=== PATIENT | female | born 1970 | race Caucasian/White ===

== ENCOUNTER 2020-10-16 08:18 | Outpatient (REF) | payer OTHER, SELFPAY ==
--- NOTE | 2020-10-16 08:23 | MM_ITS ---
EXAMINATION: MM SCREENING DIGITAL BREAST TOMOSYNTHESIS, BILATERAL CLINICAL INFORMATION: Screening. Asymptomatic. The lifetime risk of breast cancer based on the Tyrer-Cuzick Model is 7.3%. COMPARISON: Mammography: October 11, 2019 and studies dating back to April 01, 2014 TECHNIQUE: Digital breast tomosynthesis is performed in both the craniocaudal and mediolateral oblique views along with computer-aided detection (CAD). Synthesized 2D images are generated from the tomosynthesis. FINDINGS: The breasts are extremely dense, which lowers the sensitivity of mammography (ACR BI-RADS breast composition Category d). There are no significant masses, abnormal calcifications, or other abnormalities. MM/MM tomosynthesis screening BI IMPRESSION: There are no significant changes from prior study. ASSESSMENT: BI-RADS 1: Negative RECOMMENDATION: Routine annual mammography screening. This patient's information was entered into a reminder system with a target due date for their next mammogram.
== END 2020-10-16 08:19 | disposition home or self-care (01) ==
LOC: HO.MAMMO 08:18
PROVIDERS: PCP Family Medicine; Visit Provider Family Medicine
DX: Z12.31 Encounter for screening mammogram for malignant neoplasm of breast (principal)
CPT/HCPCS: 77063; 77067

== ENCOUNTER 2023-04-22 08:01 | Outpatient (REF) | payer OTHER, SELFPAY ==
--- NOTE | ~2023-04-22 | MM_ITS ---
EXAMINATION: MM SCREENING DIGITAL BREAST TOMOSYNTHESIS, BILATERAL CLINICAL INFORMATION: Screening. Asymptomatic. The lifetime risk of breast cancer based on the Tyrer-Cuzick Model is 7%. COMPARISON: Prior breast imaging exams including most recent mammography 10/16/2020. TECHNIQUE: Digital breast tomosynthesis is performed in both the craniocaudal and mediolateral oblique views along with computer-aided detection (CAD). Synthesized 2D images are generated from the tomosynthesis. Additional bilateral MLO views are provided. FINDINGS: There are scattered areas of fibroglandular density (ACR BI-RADS breast composition Category b). Breast tissue composition borders on heterogeneously dense. No developing density or architectural abnormality. There are no significant masses, abnormal calcifications, or other abnormalities. The axilla and skin contours are unremarkable. MM/MM tomosynthesis screening BI IMPRESSION: No mammographic evidence of malignancy. ASSESSMENT: BI-RADS 1: Negative RECOMMENDATION: Routine annual mammography screening. This patient's information was entered into a reminder system with a target due date for their next mammogram.
== END 2023-04-22 08:02 | disposition home or self-care (01) ==
LOC: HO.MAMMO 08:01
PROVIDERS: PCP Family Medicine; Visit Provider Family Medicine
DX: Z12.31 Encounter for screening mammogram for malignant neoplasm of breast (principal)
CPT/HCPCS: 77063; 77067

== ENCOUNTER 2023-09-01 | Outpatient (REF) | payer OTHER, SELFPAY ==
[2023-09-05 19:48] LABS: C. trachomatis RNA TMA NOT DETECTED (NOT DETECTED); N. gonorrhoeae RNA TMA NOT DETECTED (NOT DETECTED)
[2023-09-06 20:37] LABS: HPV mRNA E6/E7 rflx Not Detected (Not Detected)
== END 2023-09-01 00:01 | disposition home or self-care (01) ==
LOC: HO.HHCLNP
PROVIDERS: Visit Provider Family Medicine
DX: Z12.4 Encounter for screening for malignant neoplasm of cervix (principal); Z11.51 Encounter for screening for human papillomavirus (HPV); D06.9 Carcinoma in situ of cervix, unspecified
CPT/HCPCS: 36415; 87491; 87591; 87624; 88142

== ENCOUNTER 2023-09-04 09:03 | Outpatient (REF) | payer OTHER, SELFPAY ==
[2023-09-04 09:32] LABS: MANUAL DIFF FLAG NO
[2023-09-04 09:41] LABS: Basophils Absolute Auto 0.1 X10*3/uL (0.0-0.2); Basophils Percent Auto 0.6 % (0-2); Eosinophils Absolute Auto 0.1 X10*3/uL (0.0-0.4); Eosinophils Percent Auto 0.8 % (0-4); Hematocrit 38.2 % (37.0-47.0); Hemoglobin 12.1 g/dl (12.0-16.0); Imm Gran Abs Auto 0.05 X10*3/uL (0.00-0.03); Imm Gran Pct Auto 0.6 % (0.0-0.4); Lymphocytes Absolute Auto 1.1 X10*3/uL (1.2-4.9); Lymphocytes Percent Auto 12.1 % (20-40); Mean Corpuscular HGB Conc 31.7 g/dl (31.0-35.0); Mean Corpuscular Hemoglobin 27.8 pg (27.0-33.0); Mean Corpuscular Volume 87.6 fL (80.0-98.0); Mean Platelet Volume 11.1 fL (9.4-12.3); Monocytes Absolute Auto 0.5 X10*3/uL (0.1-1.2); Monocytes Percent Auto 5.5 % (2-11); Neutrophils Absolute Auto 7.3 x10*3/uL (2.0-8.3); Neutrophils Percent Auto 80.4 % (45-73); Platelet Count 207 X10*3/uL (160-400); Red Blood Count 4.36 X10*6/uL (4.20-5.50); Red Cell Distribution Width 12.3 % (11.0-16.0)
[2023-09-04 10:29] LABS: Alanine Aminotransferase 14 U/L (0-31); Albumin Level 4.2 g/dL (3.5-5.0); Alkaline Phosphatase 79 U/L (39-117); Anion Gap 12 (12-20); Aspartate Amino Transferase 16 U/L (5-31); Bilirubin Direct 0.2 mg/dL (0.0-0.5); Bilirubin Total 0.6 mg/dL (0.0-1.0); Blood Urea Nitrogen 9 mg/dL (9-16); Calcium 9.8 mg/dL (8.4-10.2); Carbon Dioxide 25 mmol/L (22-29); Chloride 106 mmol/L (96-108); Cholesterol 190 mg/dL (<200); Estimated Glomerular Filt Rate > 60; Glucose Random 95 mg/dL (60-115); HDL Cholesterol 70 mg/dL (>40); Iron 59 mcg/dL (30-160); LDL Cholesterol Calculated 107 mg/dL (<100); Magnesium 1.9 mg/dL (1.6-2.6); Percent Iron Saturation 21 % (15-50); Potassium 3.8 mmol/L (3.3-5.1); Sodium 139 mmol/L (135-145); Total Iron Binding Capacity 287 mcg/dL (228-428); Total Protein 8.1 g/dL (6.5-8.0); Triglycerides 66 mg/dL (<150); Unsaturated Iron Binding 228 ug/dL
[2023-09-04 10:32] LABS: ~HepC Num1 0.06 S/CO (0.00-0.79); ~Hepatitis C Antibody Nonreactive (Nonreactive)
[2023-09-04 10:38] LABS: Vitamin B12 298 pg/mL (200-900)
[2023-09-04 10:48] LABS: Ferritin 56 ng/mL (10-250); TSH reflex Free T4 5.68 uIU/mL (0.32-4.0)
[2023-09-04 12:52] LABS: Free T4 (Free Thyroxine) 0.72 ng/dL (0.71-1.85)
[2023-09-07 14:19] LABS: HIV RNA PCR Qn Copies Not Detected Copies/mL; HIV RNA PCR Qn Log Copies Not Detected Log cps/mL
== END 2023-09-04 09:04 | disposition home or self-care (01) ==
LOC: HO.LAB 09:03
PROVIDERS: PCP Family Medicine; Visit Provider Family Medicine
DX: Z00.00 Encounter for general adult medical examination without abnormal findings (principal); D50.9 Iron deficiency anemia, unspecified; Z20.2 Contact with and (suspected) exposure to infections with a predominantly sexual mode of transmission; R79.89 Other specified abnormal findings of blood chemistry; E66.9 Obesity, unspecified; Z13.228 Encounter for screening for other metabolic disorders; Z11.3 Encounter for screening for infections with a predominantly sexual mode of transmission
CPT/HCPCS: 36415; 80048; 80061; 80076; 82607; 82728; 83540; 83735; 84439; 84443; 85025; 86803; 87536; 87900

== ENCOUNTER 2024-01-09 06:19 | Day surgery (SDC) | payer OTHER, SELFPAY ==
[2024-01-05 13:39] VITALS: BMI 31.9
--- NOTE | 2024-01-08 10:19 | HO.ANESPROP2 ---
Documented by User: Virginia Kowalski NP 01/08/24 10:19 HPI - Anesthesia Eval Consult details Narrative: 53yo F for Colonoscopy PMFSH Active Problems Active Problems: All Active Problems (Updated 01/05/24 @ 13:40 by Kacy Gusman RN) Anemia (Chronic) Past Medical History Medical History HTN (hypertension) Anxiety disorder Iron deficiency anemia Family History Family History Mother Aneurysm Father Hepatitis C HIV (human immunodeficiency virus infection) Surgical History Surgical History H/O colonoscopy History of removal of neck cyst H/O tubal ligation Social History Social History Patient Tobacco Use Status: Never used Tobacco Use of substances other than those prescribed or required for medical reasons: No Are you DNR?: No Advance Directives: No Advance Directives Information Provided: Yes Meds Allergies Allergy/AdvReac Type Severity Reaction Status Date / Time corned beef Allergy Severe Anaphylaxis Uncoded 01/09/24 06:59 Home Medications Medication Instructions Recorded Confirmed Last Taken Type ferrous sulfate 325 mg (65 mg 1 tab PO TID 10/20/20 01/09/24 Unknown History iron) tablet,delayed release lorazepam 0.5 mg tablet 0.5 tab PO USEASDIRECTD PRN Anxiety 10/20/20 01/09/24 Unknown History Exam Height,Weight and Vital Signs: Height 5 ft 3 in Weight 81.647 kg Assessment and Plan Assessment Anesthesia Assessment: Chart Reviewed Documented by User: Jordan Anton MD 01/09/24 08:32 PMFSH Past Medical History Medical History HTN (hypertension) Anxiety disorder Iron deficiency anemia Family History Family History Mother Aneurysm Father Hepatitis C HIV (human immunodeficiency virus infection) Family history of problems with anesthesia: No Surgical History Surgical History H/O colonoscopy History of removal of neck cyst H/O tubal ligation History of Problems with Anesthesia: No Social History Social History Patient Tobacco Use Status: Never used Tobacco Use of substances other than those prescribed or required for medical reasons: No Are you DNR?: No Advance Directives: No Advance Directives Information Provided: Yes Meds Allergies Allergy/AdvReac Type Severity Reaction Status Date / Time corned beef Allergy Severe Anaphylaxis Uncoded 01/09/24 06:59 Home Medications Medication Instructions Recorded Confirmed Last Taken Type ferrous sulfate 325 mg (65 mg 1 tab PO TID 10/20/20 01/09/24 Unknown History iron) tablet,delayed release lorazepam 0.5 mg tablet 0.5 tab PO USEASDIRECTD PRN Anxiety 10/20/20 01/09/24 Unknown History Exam Airway Mallampati Class: II TM Dist: >3cm Neck ROM: Full Loose/Missing/Broken Teeth: No Heart: rrr+s1s2 Lungs: cta b/l Assessment and Plan Assessment Anesthesia Assessment: Anesthesia Plan Discussed Final Anesthetic Review Family History of Problems with Anesthesia: No History of Problems with Anesthesia: No NPO: Yes ASA Class: II Final Preanesthetic Review: No Changes in Pt Med Stat, Meds/Allgs Chart Reviewed, Consent Obtained/Reviewed and Anes Risks/Benef Reviewed Patient Risk: Intermediate Procedure Risk: Intermediate Assessment/Block/Sedation in SS: Assess/Block/Sedation-SS Anesthetic Plan Anesthetic Plan: MAC: Disposition: Standard PACU
[2024-01-09 07:00] VITALS: BP 153/83; PULSE 100; RESP 16; TEMP 37.2; O2SAT 99
[2024-01-09] MEDS: Lactated Ringers 1,000 ML 100 ML IVCONT (07:16)
--- NOTE | 2024-01-09 07:23 | MHC.SHP ---
Pre-Procedural Eval Section A - 24 Hr Update-Section A only Date of Service: 01/09/24 Section B - Complete if H&P > 30 days Chief Complaint: Encounter for screening for malignant neoplasm of Details of Present Illness: see H&P no changes Relevant Family History (Specify if Yes): No Relevant Social History: None Present Medications: None Medical History: No relevant PMH History of Previous Operations: No relevant previous surgery Allergies: Allergies Allergy/AdvReac Type Severity Reaction Status Date / Time corned beef Allergy Severe Anaphylaxis Uncoded 01/09/24 06:59 Review of Systems Sugical H&P ROS: Negative: Constitution, Cardiovascular, Respiratory, Neurological, Psychiatric, Hem-Onc, Allergic/Immunologic, Gastrointestinal, Genitourinary, Musculoskeletal, Integumentary, Endocrine and Eyes/Ears/Nose/Throat Exam Surgical H&P Exam: Normal: HEENT, Normal: Heart, Normal: Lungs, Normal: Extremities, Normal: Abdomen, Normal: Skin and Normal: Neurological Plan Diagnosis/Plan: Unchanged I have reviewed the history and physical and performed a pertinent physical examination on my patient. No changes have occurred unless specified. Time Spent With Patient Time: Total time managing care of this patient today ____ minutes.
[2024-01-09 07:53] VITALS: BP 109/54; PULSE 75; RESP 16; TEMP 36.7; O2SAT 100
--- NOTE | 2024-01-09 08:06 | OP_ITS ---
DATE OF SERVICE: 01/09/2024 SURGEON: Anthony James MD INDICATIONS: Colon cancer screening and prior history of adenomatous colon polyps. PREOPERATIVE DIAGNOSIS: POSTOPERATIVE DIAGNOSIS: PROCEDURE PERFORMED: Colonoscopy to the terminal ileum. ESTIMATED BLOOD LOSS: COMPLICATIONS: ANESTHESIA: Monitored anesthesia care. ASSISTANTS: SPECIMENS: DESCRIPTION OF PROCEDURE: A history and physical performed. The risks and benefits of the procedure were explained to the patient and informed consent was obtained. The patient was placed in the left lateral decubitus position. A digital rectal exam was performed and was found to be normal. The Olympus pediatric video colonoscope was introduced into the rectum and advanced to the cecum. The cecum was identified by transillumination, palpation, and identification of the ileocecal valve. Examination was performed. The scope was removed. She tolerated the procedure well, was returned to recovery room in stable condition. FINDINGS: The terminal ileum was examined and appeared normal. The visualized colonic mucosa was normal. The quality of the prep was good. No polyps were identified. Retroflexed examination showed some small internal hemorrhoids. IMPRESSION: Normal colonoscopy. RECOMMENDATION: 1. Follow up as needed. 2. Repeat colonoscopy is recommended in 10 years for average risk individuals. MD ALEXEY Grijalva/MARY / [id number]
[2024-01-09 08:15] VITALS: BP 135/77; PULSE 78; RESP 17; TEMP 36.7; O2SAT 100
== END 2024-01-09 08:35 | disposition home or self-care (01) ==
PROVIDERS: PCP Family Medicine; Visit Provider Internal Medicine Gastroenterology
PROC: 0DJD8ZZ Inspection of Lower Intestinal Tract, Via Natural or Artificial Opening Endoscopic (ICD-10-PCS; CPT 45378; principal; 2024-01-09 07:30)
DX: Z12.11 Encounter for screening for malignant neoplasm of colon (principal); Z86.010 Personal history of colon polyps; K64.8 Other hemorrhoids; I10 Essential (primary) hypertension; D50.9 Iron deficiency anemia, unspecified; Z79.899 Other long term (current) drug therapy; Z98.51 Tubal ligation status
CPT/HCPCS: 45378; J2704

== ENCOUNTER 2024-05-22 15:07 | Outpatient (REF) | payer OTHER, SELFPAY | END 2024-05-22 15:08 | disposition home or self-care (01) | LOC: HO.MAMMO 15:07 | PROVIDERS: PCP Family Medicine; Visit Provider Family Medicine | DX: Z12.31 Encounter for screening mammogram for malignant neoplasm of breast (principal) | CPT/HCPCS: 77063; 77067 ==

== ENCOUNTER → 2024-05-22 15:45 | Outpatient (BNV) | payer OTHER, SELFPAY | PROVIDERS: PCP Family Medicine; Visit Provider Radiology Diagnostic Radiology | DX: Z12.31 Encounter for screening mammogram for malignant neoplasm of breast (principal) | CPT/HCPCS: 77063; 77067 ==

== ENCOUNTER → 2024-07-10 13:35 | Outpatient (RCR) | payer SELFPAY ==
[2020-10-20 07:54] LABS: MANUAL DIFF FLAG NO
[2020-10-20 08:03] LABS: Basophils Percent Auto 0.6 % (0-2); Eosinophils Absolute Auto 0.2 X10*3/uL (0.0-0.4); Eosinophils Percent Auto 3.1 % (0-4); Hematocrit 34.5 % (37-47); Hemoglobin 11.1 g/dl (12.0-16.0); Imm Gran Abs Auto 0.03 X10*3/uL (0.00-0.03); Imm Gran Pct Auto 0.5 % (0.0-0.4); Lymphocytes Absolute Auto 1.5 X10*3/uL (1.2-4.9); Lymphocytes Percent Auto 23.7 % (20-40); Mean Corpuscular HGB Conc 32.2 g/dl (31.0-35.0); Mean Corpuscular Hemoglobin 28.5 pg (27.0-33.0); Mean Corpuscular Volume 88.5 fL (80-98); Mean Platelet Volume 11.2 fL (9.4-12.3); Monocytes Absolute Auto 0.6 X10*3/uL (0.1-1.2); Neutrophils Absolute Auto 4.1 X10*3/uL (2.0-8.3); Neutrophils Percent Auto 63.1 % (45-73); Platelet Count 205 X10*3/uL (160-400); Red Cell Distribution Width 12.4 % (11.0-16.0); White Blood Count 6.4 X10*3/uL (4.8-10.8)
[2020-10-20 08:05] VITALS: BMI 29.8
[2020-10-20 08:06] VITALS: BP 132/65; PULSE 70; RESP 18; TEMP 37; O2SAT 98
[2020-10-20 08:32] LABS: Iron 97 mcg/dL (30-160); Percent Iron Saturation 29 % (15-50); Total Iron Binding Capacity 339 mcg/dL (228-428); Unsaturated Iron Binding 242 ug/dL
--- NOTE | 2020-10-20 10:08 | P.PNHO_ITS ---
Medical Summary - Medical Summary Date of Service: 10/20/20 Chief complaint: Follow-up Medical Summary: Diagnosis: Iron deficiency anemia 2019 ferritin of 3, serum iron of 85 and iron saturation of 20%. September hemoglobin 11.4, November 2019 hemoglobin 12.1 gram/dL. Longstanding anemia dating back to 2005 with hemoglobin ranging from 11-12 gram/dL. Interval History Interval history: Patient is here in follow-up. She is doing quite well and has no complaints today. She denies fatigue, exertional chest pain, shortness of breath or dizziness. She is taking oral iron supplementation once a day. She is on her m enstrual cycle at the moment, reports no heavy bleeding. She is taking iron with orange juice and tolerating it well. She denies any change in bowel habits. Review of Systems - Constitutional Reports as per HPI, Reports no additional constitutional complaints [facility] Medical History: Medical History (Last Updated 10/20/20 @ 08:27 by Liyah Mack RN) Anxiety disorder Iron deficiency anemia Surgical History: Surgical History (Last Updated 10/20/20 @ 08:32 by Liyah Mack RN) H/O tubal ligation Home Medications and Allergies Home Medications Medication Instructions Recorded Confirmed Type ferrous sulfate 1 tab PO TID 10/20/20 10/20/20 History lorazepam 1 tab PO PRN 10/20/20 10/20/20 History Allergies Allergy/AdvReac Type Severity Reaction Status Date / Time CORN BEEF Allergy Severe ANAPHYLAXIS Uncoded 07/30/20 15:33 Exam Vital signs: Vital Signs Temp 98.6 F 10/20/20 08:06 Pulse 70 10/20/20 08:06 Resp 18 10/20/20 08:06 BP 132/65 10/20/20 08:06 Pulse Ox 98 10/20/20 08:06 Intake & Output 10/19/20 10/20/20 10/20/20 18:59 06:59 18:59 Other: Weight 76.4 kg Weight 76.4 kg Body Mass Index 29.8 - Constitutional Present: no acute distress - Routine HEENT Exam Head: Present: normal inspection Eye: Present: EOMI - Routine Neck Exam Present: full ROM. Absent: lymphadenopathy - Routine Respiratory Exam Present: CTAB - Routine Cardiovascular Exam Cardiovascular: Present: S1, S2 Data - Labs CBC & Chem 7: 10/20/20 07:53 Labs: 10/20/20 07:53 Complete Blood Count Auto Diff Routine IRON PROFILE Routine Laboratory Last Values WBC 6.4 X10*3/uL (4.8-10.8) 10/20/20 07:53 RBC 3.90 X10*6/uL (4.20-5.50) L 10/20/20 07:53 Hgb 11.1 g/dl (12.0-16.0) L 10/20/20 07:53 Hct 34.5 % (37-47) L 10/20/20 07:53 MCV 88.5 fL (80-98) 10/20/20 07:53 MCH 28.5 pg (27.0-33.0) 10/20/20 07:53 MCHC 32.2 g/dl (31.0-35.0) 10/20/20 07:53 RDW 12.4 % (11.0-16.0) 10/20/20 07:53 Plt Count 205 X10*3/uL (160-400) 10/20/20 07:53 MPV 11.2 fL (9.4-12.3) 10/20/20 07:53 Immature Gran % (Auto) 0.5 % (0.0-0.4) H 10/20/20 07:53 Neut % (Auto) 63.1 % (45-73) 10/20/20 07:53 Lymph % (Auto) 23.7 % (20-40) 10/20/20 07:53 Boyle % (Auto) 9.0 % (2-11) 10/20/20 07:53 Eos % (Auto) 3.1 % (0-4) 10/20/20 07:53 Baso % (Auto) 0.6 % (0-2) 10/20/20 07:53 Lymph # (Auto) 1.5 X10*3/uL (1.2-4.9) 10/20/20 07:53 Boyle # (Auto) 0.6 X10*3/uL (0.1-1.2) 10/20/20 07:53 Eos # (Auto) 0.2 X10*3/uL (0.0-0.4) 10/20/20 07:53 Baso # (Auto) 0.0 X10*3/uL (0.0-0.2) 10/20/20 07:53 Abs Immat Gran (auto) 0.03 X10*3/uL (0.00-0.03) 10/20/20 07:53 Absolute Neuts (auto) 4.1 X10*3/uL (2.0-8.3) 10/20/20 07:53 Absolute Nucleated RBC 0.000 X10*3/uL (0.0-0.012) 10/20/20 07:53 Nucleated RBC % (auto) 0.0 /100WBC (0.0-0.2) 10/20/20 07:53 Iron 97 mcg/dL (30-160) 10/20/20 07:53 TIBC 339 mcg/dL (228-428) 10/20/20 07:53 % Saturation 29 % (15-50) 10/20/20 07:53 Unsat Iron Binding 242 ug/dL 10/20/20 07:53 Progress Note: A/P (1) Anemia Status: Chronic Assessment and plan: 1. 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 She is not overtly symptomatic. She is on oral iron supplements, ferrous sulfate 325 mg once a day with orange juice. She is tolerating it well and reports no side effects. She has been advised to stay on this for now. She should go for screening colonoscopy if she has not already had one. Follow-up in 6 months. - Time Spent With Patient Total time spent is greater than 50% in coordination of care (as documented) at patient's floor/unit and/or counseling patient: 15 - 24 minutes
--- NOTE | 2020-10-20 13:42 | MHC.HEMONC ---
Pt here for follow up with Dr Quevedo. States is feeling well, no c/o. Dr Quevedo in, pt to follow up in 6 months.
--- NOTE | 2020-10-22 10:23 | MHC.HEMONCMA ---
I spoke to patient on 10/20/20 and let her know her insurance is not eligible. She stated she would call insurance to get it activated again.
== END | disposition home or self-care (01) ==
LOC: HO.ONC 10-20 07:47
PROVIDERS: PCP Family Medicine; Visit Provider Internal Medicine
DX: D50.0 Iron deficiency anemia secondary to blood loss (chronic) (principal); N92.1 Excessive and frequent menstruation with irregular cycle; Z79.899 Other long term (current) drug therapy
CPT/HCPCS: 36415; 83540; 85025; 99213

== ENCOUNTER 2025-02-15 10:18 | Emergency (ER) | payer OTHER, SELFPAY ==
[2025-02-15 10:23] VITALS: BP 163/62; PULSE 80; RESP 18; TEMP 36.2; O2SAT 98; BMI 31.3
--- OUTSIDE RECORDS SUMMARY | 2025-02-15 11:11 | XMS_ITS | Clinical Summary ---
Author Organization [facility] Address [address] [place] [address] Phone Care Team Providers Care Pea Viner Mechanic Name Role Phone Max, Carline Brewer MD Primary Care Provider U navailable Allergies Active Allergy Reactions Criticality Noted Date Comments Octacosanol Other (see comments) 12/29/2023 Medications No known medications Active Problems Problem Noted Date Diagnosed Date Labile hypertension due to being in a clinical e nvironment 09/09/2024 Primary hypertension 09/27/2023 Overview (12/29/2023): -Diagnosed 09/29/2023 -Blood pressures are systolic 150s-160s at multiple doctor and dental visits. Home BPs are normal. Discussed white coat hypertension still risk factor for CAD. She is hesitant to start meds if not needed - Will refer to nephrology to see if 24 hr bp is warranted Last Assessment & Plan: -Diagnosed 09/29/2023 -Blood pressures are systolic 150s-160s at multiple doctor and dental visits. Home BPs are normal. Discussed white coat hypertension still risk factor for CAD. She is hesitant to start meds if not needed - Will refer to nephrology to see if 24 hr bp is warranted H/O: anemia - iron deficient 07/13/2023 Overview (12/29/2023): Lab Results Component Value Date FERRITIN 56 09/04/2023 HGB 12.1 09/04/2023 -iron discontinued 09/2023, monitor yearly Last Assessment & Plan: Lab Results Component Value Date FERRITIN 56 09/04/2023 HGB 12.1 09/04/2023 -iron discontinued 09/2023, monitor yearly Obesity 08/17/2012 Immunizations Name Administration Dates Next Due Hepatitis A 01/22/2010,06/22/2001 Hepatitis B 09/29/2023,04/27/2023,03/30/2023 Influenza, MDCK, PF, Quadrivalent 09/09/2021 MMR 02/28/2023,05/11/2001 Moderna SARS-COV-2 06/04/2021,05/06/2021 Td 05/11/2001 Tdap 09/01/2023,08/17/2012 Social History Tobacco Use Types Packs/Day Years Used Date Smoking Tobacco: Never Smokeless Tobacco: Never Alcohol Use Standard Drinks/Week Comments Never 0 (1 standard drink = 0.6 oz pur e alcohol) Comments Unknown Sex and Gender Information Value Date Recorded Sex Assigned at Not on file Legal Sex Female 3:34 PM EST Gender Identity Not on file Sexual Orientation Not on file Last Filed Vital Signs Vital Sign Reading Time Taken Comments Blood Pressure 140/94 09/09/2024 3:27 PM EDT Pulse 98 09/09/2024 3:27 PM EDT Temperature - - Respiratory Rate - - Oxygen Saturation 99% 09/09/2024 3:27 PM EDT Inhaled Oxygen Concentration - - Weight 82.6 kg (182 lb 3.2 oz) 09/09/2024 3:27 P M EDT Height - - Body Mass Index - - Plan of Treatment Health Maintenance Due Date Last Done Comments Breast Cancer Screening 1970 Pneumococcal Vaccine: Pediat rics (0 to 5 Years) and At-Risk Patients (6 to 64 Years) (1 of 2 - PCV) 1974 Hepatitis B Vaccine (1 of 3 - 19+ 3-dose series) 1987 09/29/2023, 04/27/2023, 03/30/2023 Colorectal Cancer Screening: Annual FOBT 2017 Colorectal Cancer Screening: Colonoscopy 2017 Colorectal Cancer Screening: Sigmoidoscopy 2017 Influenza Vaccine (Season Ended) 2025 09/09/20 21 Insurance COMPREHENSIVE BENEFITS Care Teams Pea Viner Mechanic Relationship Specialty Start Date End Date Max, Carline Brewer MD [address] [place] [id number] PCP - General Family Medicine 10/09/23
--- OUTSIDE RECORDS SUMMARY | 2025-02-15 11:11 | XMS_ITS ---
Author Organization [facility] Address [address] [place] [address] Care Team Providers Care Hollow Handle Bench Worker Name Role Phone Max PARRA, Carline Primary Care Provider Rolanda vailaAnthony Hackett Jr Unavailable REASON FOR VISIT screening,hx polyps Encounters Encounter Location Date Provider Diagnosis [facility] Outpatient [address] [place] [phone] 01/09/2024 Anthony James Jr Encounter for screening colonoscopy Z12.11 and Personal history of colonic polyps Z86.010 Assessments Encounter Date Diagnosis (ICD Code) Assessment Notes Treatment Notes Treatment Clinical Notes Section Notes 01/09/2024 Encounter for screening colonoscopy (ICD-10 - Z12.11) 01/09/2024 Personal history of colonic polyps (ICD-10 - Z86.010) Plan Of Treatment No Information Progress Notes * KAREN GILL NDOB:1970 ( 54 yo F)Acc No.[id number]:01/09/2024 COLON WITH MAC Patient:?AVELINOJUSTYNA KAREN Zhou Provider:?Anthony James MD :1970???Age:53 Y???Sex:Female D ate:01/09/2024 Address:[address] [id number] Pcp:Carline Santana MD Subjective: * Chief Complaints: * ???1. Screening,hx polyps. * Medical History:? Objective: * Vitals:? Assessment: * Assessment: 1.?Encounter for screening c olonoscopy - Z12.11 (Primary)???2.?Personal history of colonic polyps - Z86.010??? Plan: * Treatment: * Procedure Codes:?44588 DIAGN OSTIC COLONOSCOPY * Preventive Medicine:? ??BRENNON Screening:?Colonoscopy?Was interval between colonoscopies three years or more??Yes,?Was last colonoscopy performed three or more years ago??Yes.? * * The named appointment provid er may or may not be the originator of this progress note, and it is not deemed complete until electronically signed by the appointment provider. Sign off status: Pending * Provider:?Anthony James MD Date:?0 01/09/2024 Generated for Lavern brewer/Breanna/eTransmitting on:?02/15/2025 11:11 AM EDT
--- OUTSIDE RECORDS SUMMARY | 2025-02-15 11:11 | XMS_ITS | Patient Health Record ---
Author Organization [facility] Address [address] [place] [address] Care Team Providers Care Customizer Name Role Phone Carline Santana MD Primary Care Provider Anthony Bajwa Jr Unavailable [phone] Allergies Allergen (clinical drug ingredient) Drug/Non Drug Allergy documented on EMR Reaction Allergy Type Onset Date Status seasonal (uncoded) Unknown Allergy A ctive Reason For Referral No Information Medications Medication SIG (Take, Route, Frequency, Duration) Notes Start Date End Date Status MiraLax (colon prep) 17 GM/SCOOP mixed with Gatorade or Crystal Light Orally begin at 5:00 p.m. the day before the procedure for 1 day 11/02/2023 Active Immunizations Vaccine Route Administration Date Status Comme nts Influenza Unknown 11/02/2023 Refused Social History Tobacco Use: Social History Observation Description Date Details (start date - stop date) Never Smoker NA - NA Tobacco Use/Smoking Question Answer Notes Patient is a nonsmoker Alcohol Screen Question Answer Notes Did you have a drink containing alcohol in the p ast year? No Points 0 Interpretation Negative Problems Problem Type SNOMED Code ICD Code Onset Dates Problem Status W/U Status Risk Notes Problem 209960227 Colon cancer screening (Z12.11) Active confirmed Problem 733008712 Personal history of colonic polyps (Z86.010) Active confirmed Problem 972667052 Encounter for other preprocedural examination (Z01.818) Active confirmed Plan Of Treatment Future Test Test Name Order Date COLONOSCOPY 01/31/2018 COLONOSCOPY 11/02/2023 Insurance Providers Payer Name Payer Address Payer Phone Subscriber Number Group Number Insured Name Patient Relationship to Insured Coverage Start Date Coverage End Date [employer] [address] [address] [place] [address] [id number] KAREN GILL Self - patient is the insured Medical (General) History Medical History History ICD Code Colonoscopy 07/31, 

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
--- OUTSIDE RECORDS SUMMARY | 2025-02-15 11:12 | XMS_ITS ---
Author Organization [facility] Address [address] [place] [address] Care Team Providers Care Residential Treatment Staff Name Role Phone Carline Santana MD Primary Care Provider Rolanda vailable Anthony James Jr REASON FOR VISIT please lock 11-02-2023 ov Encounters Encounter Location Date Provider Diagnosis [facility] [address] [place] [address] 11/20/2023 Anthony James Jr Plan Of Treatment No Information Progress Notes * AVELINOJUSTYNA KAREN NDOB:1970 ( 53 yo F)Acc No.[id number]:11/20/2023 Patient:?KAREN GILL :1970???Age:53 Y???Sex:Female Address:[address] [place], [address] * true * Date:? Generated for Lavern brewer/Breanna/eTransmitting on:?02/15/2025 11:11 AM EDT
--- OUTSIDE RECORDS SUMMARY | 2025-02-15 11:12 | XMS_ITS ---
Author Organization [facility] Address [address] [place] [address] Care Team Providers Care Juice Standardizer Name Role Phone Carline Santana MD Primary Care Provider Anthony Bajwa Jr Unavailable Allergies Allergen (clinical drug ingredient) Drug/Non Drug Allergy documented on EMR Reaction Allergy Type Onset Date Status seasonal (uncoded) Unknown Allergy A ctive REASON FOR VISIT Patient presents today for a screening colonoscopy Medications Medication SIG (Take, Route, Frequency, Duration) [...] Problem Status W/U Status Risk Notes Problem [id number] Personal history of colonic polyps (Z86.010) Active confirmed Problem 226292726 Encounter for other preprocedural examination (Z01.818) Active confirmed Vital Signs Temperature 97.3 degrees Fahrenheit 11/02/20 23 Blood pressure systolic 000 mm Hg 11/02/20 23 Blood pressure diastolic 00 mm Hg 023 Height 63 in 11/02/2023 Weight 180 lbs 11/02/2023 BMI 31.88 kg/m2 11/02/2023 Encounters Encounter Location Date Provider Diagnosis [facility] [address] [place] [address] 11/02/2023 Anthony James Jr Colon cancer screening Z12.11 ; Encounter for other preprocedural examination Z01.818 and Personal history of colonic polyps Z86.010 Assessments Encounter Date Diagnosis (ICD Code) Assessment Notes Treatment Notes Treatment Clinical Notes Section Notes 11/02/2023 Colon cancer screening (ICD-10 - Z12.11) Colonoscopy material was printed We discussed colonoscopy today. We discussed risks and benefits of the procedure today. She understands these and agrees to proceed. 11/02/2023 Encounter for other preprocedural examination (ICD-10 - Z01.818) We discussed colonoscopy today. We discussed risks and benefits of the procedure today. She understands these and agrees to proceed. 11/02/2023 Personal history of colonic polyps (ICD-10 - Z86.010) We discussed colonoscopy today. We discussed risks and benefits of the procedure today. She understands these and agrees to proceed. Plan Of Treatment Medication Medication Name Sig Start Date Stop Date Notes MiraLax (colon prep) 17 GM/SCOOP mixed with Gatorade or Crystal Light Orally begin at 5:00 p.m. the day before the procedure for 1 day 11/02/2023 Treatment Notes Assessment Notes Colon cancer screening Colonoscopy mater ial was printed Future Test Test Name Order Date COLONOSCOPY 11/02/2023 Next Appt Details Follow Up: 1 Year, Reason: Progress Notes * KAREN GILL NDOB:1970 ( 53 yo F)Acc No.[id number]:11/02/2023 Progress Notes Patient:?BRIDGET KAREN N Provider:?Anthony James MD :1970???Age:53 Y???Sex:Female D ate:11/02/2023 Address:[id number] Pcp:Carline Santana MD Subjective: * Chief Complaints: * ???1. Patient presents today for a screening colonoscopy. * HPI: ???New symptom(s):? The patient is a 53-year-old woman seen today for her preoperative colonoscopy visit. She has a history of colon polyps and last underwent colonoscopy in July 2018 with removal of a small tubular villous adenoma. Five-year followup was recommended. She has no complaints of rectal bleeding or change in her bowel habits. * ROS:?General/Constitutional:?Change in appetite?denies.?Fatigue?denies.?ENT:?Patient denies?difficulty swallowing.?Respiratory:?Patient denies?shortness of breath.?Cardiovascular:?Patient denies?chest pain.?Gastrointestinal:?Comments?See HPI for details.?Genitourinary:?Difficulty urinating?denies.?Incontinence?denies.?Musculoskeletal:?Patient denies?muscle aches.?Skin:?Patient denies?pruritis.?Neurologic:?Patient denies?low back pain.?Psychiatric:?Patient denies?mental or physical abuse.? * Medical History:?Colonoscopy 07/31, tubulovillous adenoma five-year followup, INGRID-3, Hypertension, Iron deficiency anemia. * Surgical History:?tubal liga tion , cyst removal on neck . * Family History:?Father: ronaldo sunshine.?Mother: .? No family history of colon cancer or liver cancer. * Social History:?Tobacco Use:?Tobacco Use/Smoking?Patient is a?nonsmoker.?Drugs/Alcohol:?Alcohol Screen?Did you have a drink containing alcohol in the past year??No,?Points?0,?Interpretation?Negative.?Miscellaneous:?Marital status: single. Occupation: [employer]. * Medications:?Discontinued Ir on 325 (65 Fe) MG Tablet 1 tablet Orally Once a day, Discontinued DOK 100 MG Capsule TAKE ONE CAPSULE BY MOUTH TWICE A DAY NEEDED FOR CONSTIPATION Oral prn, Discontinued Colyte with Flavor Packs 240 GM Solution Reconstituted As directed Orally Over the specified time., Medication List reviewed and reconciled with the patient * Allergies:?Seasonal. Objective: * Vitals:?Wt: 180 lbs, Ht: 63 in, BMI:31.88 Index, BP: 000/00 mm Hg, Temp: 97.3. * Examination: ???General Examination: ?GENERAL APPEARANCE:?in no acute distress.?HEAD:?normocephalic.?EYES:?sclera non-icteric.?ORAL CAVITY:?mucosa moist.?NECK/THYROID:?no lymphadenopathy.?SKIN:?anicteric.?HEART:?S1, S2 normal, no murmurs.?LUNGS:?clear to auscultation bilaterally.?CHEST:?normal shape and expansion.?ABDOMEN:?soft, nontender, nondistended, bowel sounds present, no organomegaly .?EXTREMITIES:?no clubbing, cyanosis, or edema.?PSYCH:?cognitive function intact.? Assessment: * Assessment: 1.?Encounter for other prepr ocedural examination - Z01.818 (Primary)?2.?Colon cancer screening - Z12.11?3.?Personal history of colonic polyps - Z86.010? We discussed colonoscopy tod ay. We discussed risks and benefits of the procedure today. She understands these and agrees to proceed. Plan: * Treatment: Notes: Colonoscopy material was printed.?? * Immunizations:? Influenza (Not administered - Refused: Patient decision) * Procedure Codes:?3017F COLOR ECTAL CA SCREEN DOC REV, G9903 Pt scrn tbco id as non user, G9744 PATIENT NOT ELIG D/T ACTIVE DX HTN * Preventive Medicine:? ??Counseling:?Care goal follow-up plan:?Above Normal BMI Follow-up?Giving encouragement to exercise,?BMI management provided?Yes.? * Follow Up:?1 Year * * Sign off status: Completed true * Provider:?Anthony James MD Date:?1 01/03/2023 Generated for Lavern brewer/Breanna/Efeitting on:?02/15/2025 11:11 AM EDT History and Physical Notes * HPI (History of Present Illness) Category Sub-Category Detail Notes Category Not es New symptom(s) The patient i s a 53-year-old woman seen today for her preoperative colonoscopy visit. She has a history of colon polyps and last underwent colonoscopy in July 2018 with removal of a small tubular villous adenoma. Five-year followup was recommended. She has no complaints of rectal bleeding or change in her bowel habits. Examination Category Sub-Category Detail Notes Category Not es General Examination GENERAL APPEARANCE: in no acute di stress HEAD: normocephalic EYES: sclera non-icteric NECK/THYROID: no lymphadenopathy HEART: S1, S2 normal, no mu rmurs CHEST: normal shape and exp ansion LUNGS: clear to auscultatio n bilaterally ABDOMEN: soft, nontender, non distended, bowel sounds present, no organomegaly SKIN: anicteric EXTREMITIES: no clubbing, cyanosi s, or edema PSYCH: cognitive function i ntact ORAL CAVITY: mucosa moist
[2025-02-15 11:45] VITALS: BP 157/68; PULSE 71; RESP 18; TEMP 36.2; O2SAT 98
== END 2025-02-15 11:46 | disposition home or self-care (01) ==
PROVIDERS: Emergency Provider Emergency Medicine Emergency Medical Services; PCP Family Medicine
DX: S09.90XA Unspecified injury of head, initial encounter (principal); W50.1XXA Accidental kick by another person, initial encounter; Y93.F9 Activity, other caregiving; Y92.230 Patient room in hospital as the place of occurrence of the external cause; Y99.0 Civilian activity done for income or pay
CPT/HCPCS: 99282

== ENCOUNTER → 2025-02-17 14:28 | Outpatient (BNVA) | payer OTHER, SELFPAY | PROVIDERS: PCP Family Medicine; Visit Provider Physician Assistant Medical | DX: Z13.89 Encounter for screening for other disorder (principal) | CPT/HCPCS: 99202 ==

== ENCOUNTER 2025-05-28 15:15 | Outpatient (REF) | payer OTHER, SELFPAY ==
--- OUTSIDE RECORDS SUMMARY | 2025-05-28 15:34 | XMS_ITS | Encounter Summary ---
Author Organization [employer] Address [address] [place] [address] Care Team Providers Care Editorial Intern Name Role Phone [place], Carline PARRA Primary Care Provider [phone] Joshua Granado MD Unavailable [phone] Anthony James MD Unavailable [phone] Encounter Details Date Type Department Care Team (Late st Contact Info) Description 09/29/2023 Abstract [facility] [address] [place] [address] Oconnell-Maisha Rodriguez, DDS [address] [place], [place] [id number] Social History Tobacco Use Types Packs/Day Years Used Date Smoking Tobacco: Never Smokeless Tobacco: Never Alcohol Use Standard Drinks/Week Comments Yes 0 (1 standard drink = 0.6 oz pur e alcohol) occ Depression Answer Date Recorded Patient Health Questionnaire-9 Score 0 09/01/2023 Patient Health Questionnaire-9 Score 0 09/01/2023 Last PHQ-9: Questionnaire Data Not on file 1 Housing Stability Answer Date Recorded What is your housing situation today? I have sarah moctezuma 09/01/[address] you li ve. Do you have problems with any of the following? None of the above 09/01/2023 Food Insecurity Answer Date Recorded Within the past 12 months, y ou worried that your food would run out before you got money to buy more: Never True 09/01/2023 Within the past 12 months,th e food you bought just didn't last and you didn't have enough money to get more: Never True Transportation Answer Date Recorded In the past 12 months, has l ack of transportation kept you from medical appts, meetings, work or from getting things needed for daily living? No 09/01/2023 Utilities Answer Date Recorded In the past 12 months, has t he electric, gas, oil or water company threatened to shut off services in your home? No 09/01/2023 Depression Answer Date Recorded Patient Health Questionnaire-2 Score 0 09/01/2023 Comments Unknown Sex and Gender Information Value Date Recorded Sex Assigned at Female 09/12/2022 10:14 AM EDT Legal Sex Female 10:14 AM EDT Gender Identity Female 09/12/2022 10:14 AM EDT Sexual Orientation Straight 09/12/2022 10 :14 AM EDT documented as of this encounter Plan of Treatment Not on file documented as of this encounter Visit Diagnoses Not on filedocumented in this encounter Additional Health Concerns Assessment Noted Time PHQ-9 Depression Total Score: 0 09/01/20 23 9:58 AM EDT documented as of this encounter Care Teams Editorial Intern Relationship Specialty Start Date End Date Carline Santana MD [address] [place] [address] PCP - General Family Medicine 07/28/15 Joshua Granado MD [address] [facility] [address] [place] [address] Nephrology 10/26/24 Anthony James MD [address] [place] [address] [address] [place] [address] Gastroenterology 10/26/24 documented as of this encounter
--- OUTSIDE RECORDS SUMMARY | 2025-05-28 15:34 | XMS_ITS | Patient Health Record ---
Author Organization [facility] Address [address] [place] [address] Care Team Providers Care Telephone Sterilizer Name Role Phone Carline Santana MD Primary Care Provider Anthony Bajwa Jr Unavailable [phone] Allergies Allergen (clinical drug ingredient) Drug/Non Drug [...] Problem Status W/U Status Risk Notes Problem 101916128 Colon cancer screening (Z12.11) Active confirmed Problem 004306588 Personal history of colonic polyps (Z86.010) Active confirmed Problem 960096772 Encounter for other preprocedural examination (Z01.818) Active confirmed Plan Of Treatment Future Test Test Name Order Date COLONOSCOPY 01/31/2018 COLONOSCOPY 11/02/2023 Insurance Providers Payer Name Payer Address Payer Phone Subscriber Number Group Number Insured Name Patient Relationship to Insured Coverage Start Date Coverage End Date [employer] [address] [address] [place] [address] [id number] KAREN GILL Self - patient is the insured Medical (General) History Medical History History ICD Code Colonoscopy 07/31, 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
--- OUTSIDE RECORDS SUMMARY | 2025-05-28 15:34 | XMS_ITS | Clinical Summary ---
Author Organization [facility] Address [address] [place] [address] Phone Care Team Providers Care Checking Clerk Name Role Phone Max, Carline Brewer MD [...] discontinued 09/2023, monitor yearly Obesity 08/17/2012 Immunizations Immunization Administration Dates Next Due Hepatitis A 01/22/2010,06/22/2001 [...] Last Done Comments Breast Cancer Screening 1970 Hepatitis B Vaccine (1 of 3 - 19+ 3-dose series) 1987 09/29/2023, 04/27/2023, 03/30/2023 Pneumococcal Vaccine: 50+ Ye ars (1 of 2 - PCV) 1987 Colorectal Cancer Screening: Annual FOBT 2017 Colorectal Cancer Screening: Colonoscopy 2017 Colorectal Cancer Screening: Sigmoidoscopy 2017 Influenza Vaccine (#1) 2025 09/09/2021 Insurance Comprehensive Benefits Comprehensive Benefits Care Teams Checking Clerk Relationship Specialty Start Date End Date [place], Carline Brewer MD [address] [facility] [place] [address] PCP - General Family Medicine 10/09/23
== END 2025-05-28 15:16 | disposition home or self-care (01) ==
LOC: HO.MAMMO 15:15
PROVIDERS: PCP Family Medicine; Visit Provider Family Medicine
DX: Z12.31 Encounter for screening mammogram for malignant neoplasm of breast (principal)
CPT/HCPCS: 77063; 77067

== ENCOUNTER → 2025-05-28 15:15 | Outpatient (BNV) | payer OTHER, SELFPAY | PROVIDERS: PCP Family Medicine; Visit Provider Radiology Body Imaging | DX: Z12.31 Encounter for screening mammogram for malignant neoplasm of breast (principal) | CPT/HCPCS: 77063; 77067 ==

== ENCOUNTER 2025-06-12 06:33 | Outpatient (REF) | payer OTHER, SELFPAY ==
--- OUTSIDE RECORDS SUMMARY | 2025-06-12 06:35 | XMS_ITS | Patient Health Record ---
Author Organization [facility] Address [address] [place] [address] Care Team Providers Care Sales Management Intern Name Role Phone Carline Santana MD Primary [...] Problem Status W/U Status Risk Notes Problem 140559065 Colon cancer screening (Z12.11) Active confirmed Problem 837505102 Personal history of colonic polyps (Z86.010) Active confirmed Problem 189188457 Encounter for other preprocedural examination (Z01.818) Active confirmed Plan Of Treatment Future Test Test Name Order Date COLONOSCOPY 01/31/2018 COLONOSCOPY 11/02/2023 Insurance Providers Payer Name Payer Address Payer Phone Subscriber Number Group Number Insured Name Patient Relationship to Insured Coverage Start Date Coverage End Date [employer] [address] [address] [place] [address] [id number] KAREN GILL Self - patient is the insured Medical (General) History Medical History History ICD Code Colonoscopy 07/31, 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
--- OUTSIDE RECORDS SUMMARY | 2025-06-12 06:35 | XMS_ITS | Encounter Summary ---
Author Organization [employer] Address [address] [facility] [facility] [address] [place] [address] Care Team Providers Care Transmission Design Engineer Name Role Phone [place], Carline PARRA Primary Care Provider [phone] Joshua Granado MD Unavailable [phone] Anthony James MD Unavailable [phone] Encounter Details Date Type Department Care Team (Late st Contact Info) Description 09/29/2023 Abstract [facility] [address] [place] [address] Oconnell-Maisha Rodriguez, DDS [address] [place], [place] [id number] Social History Tobacco Use Types Packs/Day Years [...] documented as of this encounter Care Teams Transmission Design Engineer Relationship Specialty Start Date End Date Carline Santana MD [address] [place] [address] PCP - General Family Medicine 07/28/15 Joshua Granado MD [address] [facility] [address] [place] [address] Nephrology 10/26/24 Anthony James MD [address] [place] [address] [address] [place] [address] Gastroenterology 10/26/24 documented as of this encounter
--- OUTSIDE RECORDS SUMMARY | 2025-06-12 06:35 | XMS_ITS | Clinical Summary ---
Author Organization [facility] Address [address] [place] [address] Phone Care Team Providers Care Culled Fruit Packer Name Role Phone Max, Carline Brewer MD [...] Insurance Comprehensive Benefits Comprehensive Benefits Care Teams Culled Fruit Packer Relationship Specialty Start Date End Date [place], Carline Brewer MD [address] [facility] [address] PCP - General Family Medicine 10/09/23
[2025-06-12 06:58] LABS: MANUAL DIFF FLAG NO
[2025-06-12 07:17] LABS: Hematocrit 36.0 % (37.0-47.0); Hemoglobin 11.8 g/dl (12.0-16.0); Imm Gran Abs Auto 0.02 X10*3/uL (0.00-0.03); Imm Gran Pct Auto 0.3 % (0.0-0.4); Lymphocytes Absolute Auto 1.9 X10*3/uL (1.2-4.9); Mean Corpuscular HGB Conc 32.8 g/dl (31.0-35.0); Mean Corpuscular Hemoglobin 28.3 pg (27.0-33.0); Mean Corpuscular Volume 86.3 fL (80.0-98.0); NRBC Abs Auto 0.000 X10*3/uL (0.0-0.012); NRBC Pct Auto 0.0 /100WBC (0.0-0.2); Platelet Count 203 X10*3/uL (160-400); Red Blood Count 4.17 X10*6/uL (4.20-5.50); White Blood Count 5.9 X10*3/uL (4.8-10.8)
[2025-06-12 07:28] LABS: Hemoglobin A1C 112.9809 umol/L; Total Hemoglobin (HGBA1C) 3075.3774 umol/L
[2025-06-12 07:39] LABS: Alanine Aminotransferase 21 U/L (0-31); Albumin Level 4.3 g/dL (3.5-5.0); Alkaline Phosphatase 86 U/L (39-117); Anion Gap 11 (12-20); Aspartate Amino Transferase 24 U/L (5-31); Blood Urea Nitrogen 15 mg/dL (9-16); Calcium 9.7 mg/dL (8.4-10.2); Carbon Dioxide 26 mmol/L (22-29); Chloride 109 mmol/L (96-108); Cholesterol 175 mg/dL (<200); Estimated Glomerular Filt Rate > 60; HDL Cholesterol 65 mg/dL (>40); Iron 89 mcg/dL (30-160); Percent Iron Saturation 30 % (15-50); Potassium 4.1 mmol/L (3.3-5.1); Sodium 142 mmol/L (135-145); Total Iron Binding Capacity 297 mcg/dL (228-428); Total Protein 7.6 g/dL (6.5-8.0); Triglycerides 65 mg/dL (<150); Unsaturated Iron Binding 208 ug/dL
[2025-06-12 07:53] LABS: Ferritin 54 ng/mL (10-250)
[2025-06-12 08:31] LABS: Microalbum/Creatinine Ratio Ur 3.6 ug/mg cr (<30)
[2025-06-12 08:44] LABS: Free T4 (Free Thyroxine) 0.72 ng/dL (0.71-1.85)
== END 2025-06-12 06:34 | disposition home or self-care (01) ==
LOC: HO.LAB 06:33
PROVIDERS: PCP Family Medicine; Visit Provider Family Medicine
DX: Z12.31 Encounter for screening mammogram for malignant neoplasm of breast (principal); E66.811 Obesity, class 1; E66.09 Other obesity due to excess calories; Z68.31 Body mass index [BMI] 31.0-31.9, adult; R79.89 Other specified abnormal findings of blood chemistry; I10 Essential (primary) hypertension
CPT/HCPCS: 36415; 80048; 80061; 80076; 82043; 82570; 82728; 83036; 83540; 84439; 84443; 85025

== ENCOUNTER 2025-09-29 09:32 | Outpatient (REF) | payer OTHER, SELFPAY ==
[2025-09-29 09:44] LABS: MANUAL DIFF FLAG NO
[2025-09-29 10:41] LABS: Hematocrit 36.7 % (37.0-47.0); Hemoglobin 11.5 g/dl (12.0-16.0); Imm Gran Abs Auto 0.02 X10*3/uL (0.00-0.03); Imm Gran Pct Auto 0.4 % (0.0-0.4); Lymphocytes Absolute Auto 1.5 X10*3/uL (1.2-4.9); Mean Corpuscular HGB Conc 31.3 g/dl (31.0-35.0); Mean Corpuscular Hemoglobin 27.4 pg (27.0-33.0); Mean Corpuscular Volume 87.4 fL (80.0-98.0); NRBC Abs Auto 0.000 X10*3/uL (0.0-0.012); NRBC Pct Auto 0.0 /100WBC (0.0-0.2); Platelet Count 214 X10*3/uL (160-400); Red Blood Count 4.20 X10*6/uL (4.20-5.50); White Blood Count 5.7 X10*3/uL (4.8-10.8)
[2025-09-29 11:39] LABS: Iron 81 mcg/dL (30-160); Percent Iron Saturation 28 % (15-50); Total Iron Binding Capacity 294 mcg/dL (228-428); Unsaturated Iron Binding 213 ug/dL
[2025-09-29 11:41] LABS: Ferritin 59 ng/mL (10-250)
[2025-09-29 11:57] LABS: Folate 4.5 ng/mL (> or = 4.0); Vitamin B12 198 pg/mL (200-900)
[2025-09-29 12:20] LABS: Free T4 (Free Thyroxine) 0.76 ng/dL (0.71-1.85)
== END 2025-09-29 09:33 | disposition home or self-care (01) ==
LOC: HO.LAB 09:32
PROVIDERS: PCP Family Medicine; Visit Provider Family Medicine
DX: R79.89 Other specified abnormal findings of blood chemistry (principal); D64.9 Anemia, unspecified; Z78.0 Asymptomatic menopausal state; Z13.21 Encounter for screening for nutritional disorder
CPT/HCPCS: 36415; 82306; 82607; 82728; 82746; 83540; 84439; 84443; 85025